=== PATIENT | male | born 2000 | race African-American/Black ===

== ENCOUNTER 2023-11-15 11:45 | Emergency (ER) | payer SELFPAY ==
[~2023-11-15] VITALS: Ht 167.6 cm; Wt 63.6 kg
[~2023-11-15 11:45] MED LIST: CRUTCHES MC
[2023-11-15 11:51] VITALS: BP 105/65; TEMP 98.1
[2023-11-15 13:36] VITALS: PULSE 62
== END 2023-11-15 13:36 | disposition home or self-care (01) ==
LOC: COL.ER 11:45
DX: I86.1 Scrotal varices (principal)